=== PATIENT | female | born 1955 | race Caucasian/White ===

== ENCOUNTER 2017-02-10 19:40 | Emergency (ER) | payer OTHER ==
[~2017-02-10] VITALS: Ht 172.7 cm; Wt 127.0 kg
[~2017-02-10 19:40] MED LIST: BENA20TA PO; CAL40 PO; CARI350T PO; HYDR-4452 PO; LORA-476 PO; PROP40TA29 PO
[2017-02-10 19:47] VITALS: BP 141/76
--- NOTE | 2017-02-10 19:58 | NUR ---
PT PLACED IN OVERFLOW 2.
[2017-02-10] MEDS ORDERED: ACETAMINOPHEN EXTRA STRENGTH 500 MG TAB ONE (20:01)
--- NOTE | 2017-02-10 20:10 | NUR ---
62/F c/o sore throat x5 days accompanied by body aches. Pt AOX4, ambulatory with steady gait.
--- NOTE | 2017-02-10 20:10 | NUR ---
Patient being evaluated by Dr. Mccarthy in overflow.
[2017-02-10] MEDS ORDERED: cefTRIAXone 1,000 MG in LIDOCAINE 1% ED 2.1 ML IM ONE (20:30)
[2017-02-10] MEDS ORDERED: IBUPROFEN 800 MG TAB ONE (20:38)
[2017-02-10 20:45] VITALS: BP 126/77
--- NOTE | 2017-02-10 20:45 | NUR ---
Patient discharged with v/s stable. Written and verbal after care instructions given and explained. Patient alert, oriented and verbalized understanding of instructions. Ambulatory with steady gait. All questions addressed prior to discharge. ID band removed. Patient advised to follow up with PMD. Rx of Ibuprofen and Augmentin given. Patient educated on indication of medication including possible reaction and side effects. Opportunity to ask questions provided and answered.
== END 2017-02-10 20:45 | disposition home or self-care (01) ==
LOC: MED 19:40
DX: J06.9 Acute upper respiratory infection, unspecified (principal); I10 Essential (primary) hypertension; Z85.828 Personal history of other malignant neoplasm of skin; Z79.899 Other long term (current) drug therapy
CPT/HCPCS: 96372; 99283; J0696; J2001

== ENCOUNTER 2018-11-23 15:04 | Emergency (ER) | payer OTHER ==
[~2018-11-23] VITALS: Ht 172.7 cm; Wt 146.5 kg
[~2018-11-23 15:04] MED LIST changes: +ACET-787 PO; -HYDR-4452 PO
--- NOTE | 2018-11-23 15:20 | NUR ---
PT AMBULATED TO BED 6
[2018-11-23 15:24] VITALS: BP 157/73
--- NOTE | 2018-11-23 15:30 | NUR ---
PATIENT PRESENTS TO ED WITH C/O LT SHOULDER PAIN X1 WEEK. PT DENIES TRAUMA/INJURY. LIMITED ROM TO AFFECTED EXTREMITY NOTED. +PULSES, GOOD CAP REFILL. PATIENT STATES PAIN OF 10/10 AT THIS TIME; VSS; PATIENT POSITIONED FOR COMFORT; HOB ELEVATED; BEDRAILS UP X1; BED DOWN. ER MD TO EVALUATE PT.
[2018-11-23] MEDS ORDERED: DEXAMETHASONE 10 MG/ML VIAL IM ONE (15:50)
[2018-11-23] MEDS ORDERED: MORPHINE SULFATE 4 MG/ML SYR IM ONE (15:50)
--- NOTE | 2018-11-23 15:58 | NUR ---
settlement technician at bedside.
--- NOTE | 2018-11-23 16:50 | NUR ---
PT STATES PAIN DECREASED TO 7/10 AFTER PAIN MEDICATION ADMINISTRATION. PT RESTING COMFORTABLY IN BED. COMFORT AND SAFETY MEASURES PROVIDED.
--- NOTE | 2018-11-23 17:22 | NUR ---
PLACED SLING ON LEFT ARM OF PATIENT
--- NOTE | 2018-11-23 17:26 | NUR ---
Dr. Finn re-evaluating patient at bedside.
[2018-11-23 17:27] VITALS: BP 135/62
--- NOTE | 2018-11-23 17:28 | NUR ---
Patient discharged with v/s stable. Written and verbal after care instructions given and explained. Patient alert, oriented and verbalized understanding of instructions. Ambulatory with steady gait. All questions addressed prior to discharge. ID band removed. Patient advised to follow up with PMD. Rx of Voltaren XR tab given. Patient educated on indication of medication including possible reaction and side effects. Opportunity to ask questions provided and answered.
== END 2018-11-23 17:28 | disposition home or self-care (01) ==
LOC: MED 15:04
DX: M75.02 Adhesive capsulitis of left shoulder (principal); I10 Essential (primary) hypertension; G43.909 Migraine, unspecified, not intractable, without status migrainosus; Z79.891 Long term (current) use of opiate analgesic; Z85.828 Personal history of other malignant neoplasm of skin; Z79.899 Other long term (current) drug therapy
CPT/HCPCS: 73030; 96372; 99283; J1100; J2270; Q0092